=== PATIENT | female | born 1985 | race Caucasian/White ===

== ENCOUNTER 2023-11-18 17:24 | Emergency (ER) | payer OTHER, SELFPAY ==
[2023-11-18 17:47] VITALS: BP 124/83; PULSE 100; TEMP 36.7; O2SAT 98; BMI 26.2
--- NOTE | 2023-11-18 18:17 | PC.NURSE ---
Registration called to inform the ER pt has LWBS
== END 2023-11-18 18:18 | disposition left against medical advice (07) ==
PROVIDERS: Emergency Provider Emergency Medicine
DX: Z53.21 Procedure and treatment not carried out due to patient leaving prior to being seen by health care provider (principal)